=== PATIENT | male | born 1960 | race Caucasian/White ===

== ENCOUNTER 2016-04-26 09:46 | Day surgery (SDC) | payer BC ==
--- NOTE | 2016-04-26 10:20 | OR ---
Anesthesia Pre Procedure Eval Date of Service: 04/26/16 Pre Procedure Evaluation: Last Vital Signs Temp 36.3 C L 04/26/16 09:58 Pulse 62 04/26/16 09:58 Resp 16 04/26/16 09:58 BP 131/85 04/26/16 09:58 Pulse Ox 98 04/26/16 09:58 Anesthesia Pre Procedure Evaluation DATE: 04/26/2016 TIME: 10:15 INDICATIONS: Low back pain, radicular pain, spinal stenosis, disc bulge PAST MEDICAL HISTORY: Mr. Jacobs has had a long history of multiple issues including chronic back and leg pain. His back pain has been constant and severe which radiates into the legs. He has taken medication therapy and had temporary relief with epidural steroid injections. His most recent injection was on December 02 of last year and has had a return of pain to a relatively high level for the past 2 or more months. In the past he was told he was not a surgical candidate and the possibility of future MRIs to demonstrate any change was not possible due to his pacemaker insertion. EXAM: Heart regular; lungs clear ASSESSMENT OF MEDICAL STATUS: Appropriate candidate for epidural injection PLANNED PROCEDURE: Lumbar epidural steroid injection Home Medications: HOME MEDICATIONS Atorvastatin Calcium 40 mg PO HS 05/05/15 [Last Taken Unknown] Clopidogrel Bisulfate [Plavix] 75 mg PO DAILY 05/05/15 [Last Taken Unknown] Ibuprofen [Motrin] 400 mg PO Q4H PRN 05/05/15 [Last Taken Unknown] Lamotrigine [Lamictal] 150 mg PO BID 05/05/15 [Last Taken Unknown] Metoprolol Tartrate [Lopressor] 12.5 mg PO DAILY 05/05/15 [Last Taken Unknown] Aspirin [Aspirin Enteric Coated] 81 mg PO DAILY 04/21/16 [Last Taken Unknown] Lisinopril [Zestril] 2.5 mg PO DAILY 04/21/16 [Last Taken Unknown]
[2016-04-26] MEDS: IOPAMIDOL 20 ML VIAL IJ ONE (11:07)
[2016-04-26] MEDS: LIDOCAINE HCL/PF 5 ML VIAL IJ ONE (11:07)
[2016-04-26] MEDS: DEXAMETHASONE SOD PHOSPHATE 10 MG/ML VIAL IJ ONE (11:07)
--- NOTE | 2016-04-26 11:22 | OR ---
Anesthesia Procedure Note - Anesthesia Procedure Note Date of Service: 04/26/16 Narrative: Vital Signs - Last Taken Temp 36.3 C L 04/26/16 09:58 Pulse 60 04/26/16 10:55 Resp 18 04/26/16 10:55 BP 63/26 04/26/16 10:55 Pulse Ox 98 04/26/16 10:55 O2 Oxygen Delivery Method Room Air 04/26/16 11:17 ANESTHESIA PROCEDURE NOTE Date of Procedure: 04/26/2016 Time of procedure: 11:00. Performed by: Fawad Landa CRNA, PULMONOLOGIST, MSN Stations Superintendent: Tierney Rowe RN. Preprocedure diagnosis: Degenerative disc disease, spinal stenosis, disc bulge, low back pain. Post procedure diagnosis: Same. Procedure: Epidural Steroid Injection L5-S1. Indications: Low back pain. Findings: See below. Details of the procedure: After the MRI report and films were reviewed, the patient was interviewed where risks and the procedure were explained. The patient was then brought to OR 3 and was placed in the prone position. The back was prepped with DuraPrep and draped in a sterile fashion. The lumbar area was identified under fluoroscopy and the L5-S1 space was localized with 1% lidocaine solution. The epidural space was identified using loss of resistance technique using a #20-gauge Touhy needle. 1 mL of Isovue was injected while the C-arm was positioned in the lateral orientation. The C-arm was then readjusted to an AP view and Isovue 200 2 milliliters was injected demonstrating a spread at the affected area. Dexamethasone 10mg and lidocaine 1 % 5 mL was injected, stylette was replaced and the epidural needle removed. A Band-Aid was then applied to the injection site, patient was placed in a supine position for 5 minutes then returned to ASU with good relief of pain, from a 6/ 10 to 0/10. EBL: None. Energy: 6.5 Seconds, 2.15 mGy Fluids: N/A. Specimen: N/A. Post procedure condition: The patient tolerated the procedure well. No complications were noted. Thank you for this consultation. Fawad Landa CRNA, MSN, PULMONOLOGIST
[2016-04-26 11:51] VITALS: BP 136/98
== END 2016-04-26 09:47 | disposition home or self-care (01) ==
LOC: AMB 09:46
PROVIDERS: ATTEND Family Medicine
PROC: 3E0S3BZ Introduction of Anesthetic Agent into Epidural Space, Percutaneous Approach (ICD-10-PCS; 2016-04-26)
PROC: 3E0S33Z Introduction of Anti-inflammatory into Epidural Space, Percutaneous Approach (ICD-10-PCS; principal; 2016-04-26 10:30)
DX: M51.36 Other intervertebral disc degeneration, lumbar region (principal); M48.06 Spinal stenosis, lumbar region; M51.26 Other intervertebral disc displacement, lumbar region